=== PATIENT | female | born 1980 | race Caucasian/White ===

== ENCOUNTER 2018-02-16 21:18 | Emergency (ER) | payer OTHER ==
[~2018-02-16] VITALS: Ht 157.5 cm; Wt 55.0 kg
[2018-02-16] MEDS ORDERED: IOHEXOL 350 MG/ML 10 ML VIAL (for RAD DIAG) IVCONTRAST ONE (21:19)
[2018-02-16 21:35] VITALS: BP 117/64; PULSE 61; RESP 16; O2SAT 100
--- NOTE | 2018-02-16 21:40 | PD ---
HPI Time Seen by Provider: 21:35 History of Present Illness HPI The patient is [-] year old [-]male who presents to the [facility] emergency department with a history of [-] that began [-]. The patient denies any history of fever, cough, congestion, neck pain, chest pain, shortness of breath, abdominal pain, vomiting, diarrhea, urinary symptoms , or neurologic symptoms. LMP [-] Tetanus is reportedly up to date. Allergies-Medications (Allergen,Severity, Reaction): Coded Allergies: shellfish derived (Verified Allergy, Unknown, 02/16/18) Reported Meds & Prescriptions Reported Meds & Active Scripts Active No Active Prescriptions or Reported Medications Data Data Last Documented VS Vital Signs Date Time Temp Pulse Resp B/P (MAP) Pulse Ox O2 Delivery O2 Flow Rate FiO2 02/16/18 22:44 78 16 117/66 (83) 77 16 123/67 (85) 65 119/69 (86) 02/16/18 22:33 98.3 02/16/18 21:35 100 Orders Orders Electrocardiogram (02/16/18 21:35) Complete Blood Count With Diff (02/16/18 21:35) Comprehensive Metabolic Panel (02/16/18 21:35) C-Reactive Protein (Crp) (02/16/18 21:35) Lipase (02/16/18 21:35) Urinalysis - C+S If Indicated (02/16/18 21:35) Magnesium (Mg) (02/16/18 21:35) Chest, Single Ap (02/16/18 21:35) Ct Abd/Pel W Iv Contrast(Rout) (02/16/18 21:35) Iv Access Insert/Monitor (02/16/18 21:35) Ecg Monitoring (02/16/18 21:35) Oximetry (02/16/18 21:35) Ed Urine Pregnancytest Poc (02/16/18 21:35) Sodium Chlor 0.9% 1000 Ml Inj (Ns 1000 M (02/16/18 22:15) Morphine Inj (Morphine Inj) (02/16/18 22:15) Ondansetron Inj (Zofran Inj) (02/16/18 22:15) Sodium Chloride 0.9% Flush (Ns Flush) (02/16/18 22:15) Orthostatic Vital Signs (02/16/18 22:12) Creatine Kinase (Cpk) (02/16/18 21:35) Troponin I (02/16/18 21:35) Oxycodone-Acetamin 5-325 Mg (Percocet (02/16/18 23:00) Labs Laboratory Tests Test 02/16/18 22:30 Urine Color YELLOW Urine Turbidity CLEAR Urine pH 6.0 Urine Specific [place] 1.029 Urine Protein 30 mg/dL Urine Glucose (UA) NEG mg/dL Urine Ketones TRACE mg/dL Urine Occult Blood NEG Urine Nitrite NEG Urine Bilirubin NEG Urine Urobilinogen 2.0 MG/DL Urine Leukocyte Esterase TRACE Urine RBC 1 /hpf Urine WBC 2 /hpf Urine Squamous Epithelial Cells 1 /hpf Urine Calcium Oxalate Crystals FEW /hpf Urine Hyaline Casts 1 /lpf Urine Mucus MANY /lpf Microscopic Urinalysis Comment CULT NOT INDICATED MDM Scripts No Active Prescriptions or Reported Meds Carole Jay MD Feb 16, 2018 21:40
--- NOTE | 2018-02-16 21:59 | RADRPT ---
EXAM DATE/TIME: 02/16/2018 21:45 [facility] COMPARISON: No previous studies available for comparison. INDICATIONS : Right upper quadrant pain and two syncopal episodes today. MEDICAL HISTORY : None. SURGICAL HISTORY : None. ENCOUNTER: Initial ACUITY: 1 day PAIN SCORE: 0/10 LOCATION: Bilateral chest FINDINGS: A single view of the chest demonstrates the lungs to be symmetrically aerated without evidence of mas s, infiltrate or effusion. The cardiomediastinal contours are unremarkable. Osseous structures are intact. CONCLUSION: No acute disease. Erik Leach MD FACR on February 16, 2018 at 21:56 Board Certified Radiologist. This report was verified electronically.
--- NOTE | 2018-02-16 22:12 | PD ---
HPI Chief Complaint: Abdominal pain, syncope Time Seen by Provider: 22:01 Travel History International Travel<30 days: No Contact w/Intl Traveler<30days: No History of Present Illness HPI 37-year-old female presents to the emergency department presents to the emergency department for evaluation of right upper quadrant abdominal pain as well as syncope. Patient states she started abdominal pain this morning. She states that while eating dinner, the pain worsened. She states that while eating dinner, she had syncopal episode 2. Her family member witnessed the episodes. She had no head injury. The patient denies any chest pain or shortness of breath. She reports history of cholecystectomy. She denies . She currently rates the pain 8/10, aching and throbbing, without radiation. Patient reports no chronic medical problems and takes no prescribed medications. Eating makes pain worse. No alleviating factors. Moderate severity. PFSH Social History Alcohol Use: Yes Tobacco Use: No Substance Use: No Allergies-Medications (Allergen,Severity, Reaction): Coded Allergies: shellfish derived (Verified Allergy, Unknown, 02/16/18) Review of Systems Except as stated in HPI: all other systems reviewed are Neg Physical Exam Narrative GENERAL: Well-nourished, well-developed female patient, ambulatory. Afebrile SKIN: Focused skin assessment warm/dry. HEAD: Normocephalic. Atraumatic ENT: Mucosa pink and moist. No erythema or exudates. No uvular edema. No uvular , palatal, or tonsillar deviation. Airway patent. Nasal turbinates appear normal without nasal blood, purulent drainage or septal hematoma. Bilateral tympanic membranes clear without erythema or perforation. EYES: No scleral icterus. No injection or drainage. NECK: Supple, trachea midline. No JVD or lymphadenopathy. CARDIOVASCULAR: Regular rate and rhythm without murmurs, gallops, or rubs. RESPIRATORY: Breath sounds equal bilaterally. No accessory muscle use. Lung sounds are clear to auscultation GASTROINTESTINAL: Abdomen soft and nondistended. Patient has tenderness over the right upper quadrant MUSCULOSKELETAL: No cyanosis, or edema. BACK: Nontender without obvious deformity. No CVA tenderness. Data Data Last Documented VS Vital Signs Date Time Temp Pulse Resp B/P (MAP) Pulse Ox O2 Delivery O2 Flow Rate FiO2 02/16/18 21:35 61 16 117/64 (81) 100 Orders Orders Electrocardiogram (02/16/18 21:35) Complete Blood Count With Diff (02/16/18 21:35) Comprehensive Metabolic Panel (02/16/18 21:35) C-Reactive Protein (Crp) (02/16/18 21:35) Lipase (02/16/18 21:35) Urinalysis - C+S If Indicated (02/16/18 21:35) Magnesium (Mg) (02/16/18 21:35) Chest, Single Ap (02/16/18 21:35) Ct Abd/Pel W Iv Contrast(Rout) (02/16/18 21:35) Iv Access Insert/Monitor (02/16/18 21:35) Ecg Monitoring (02/16/18 21:35) Oximetry (02/16/18 21:35) Ed Urine Pregnancytest Poc (02/16/18 21:35) Creatine Kinase (Cpk) (02/16/18 22:06) Troponin I (02/16/18 22:06) Sodium Chlor 0.9% 1000 Ml Inj (Ns 1000 M (02/16/18 22:15) Morphine Inj (Morphine Inj) (02/16/18 22:15) Ondansetron Inj (Zofran Inj) (02/16/18 22:15) Sodium Chloride 0.9% Flush (Ns Flush) (02/16/18 22:15) Orthostatic Vital Signs (02/16/18 22:12) MDM Medical Decision Making Medical Screen Exam Complete: Yes Emergency Medical Condition: Yes Medical Record Reviewed: Yes Differential Diagnosis Acute pancreatitis versus bile duct obstruction versus UTI versus electrolyte abnormality versus dehydration Narrative Course 37-year-old female presents to the emergency department for evaluation of abdominal pain and syncope. EKG showed sinus rhythm, heart rate 60, no acute ST changes. CBC, CMP, CRP, lipase, magnesium, CK, troponin, UA, UPT are ordered and pending. Chest x-ray and CT abdomen/pelvis with IV contrast are ordered and pending. Orthostatic vital signs are ordered and pending. Patient is given normal saline 1 L IV bolus, morphine 4 mg IV, Zofran 4 mg IV. Chest x-ray shows no acute disease. Dr. Jay will resume care and disposition of patient Sneha Beltran Feb 16, 2018 22:12
[2018-02-16] MEDS ORDERED: MORPHINE SULFATE 4 MG/ML INJ IV PUSH ONE (22:15)
[2018-02-16] MEDS ORDERED: ONDANSETRON HCL 4 MG/2 ML VIAL IV PUSH ONE (22:15)
[2018-02-16] MEDS ORDERED: SODIUM CHLOR 0.9% 1000 ML INJ 1,000 ML IV ONE (22:15)
[2018-02-16] MEDS ORDERED: SODIUM CHLORIDE 0.9% FLUSH 10 ML FLUSH IVF PRN (22:15)
[2018-02-16 22:33] VITALS: TEMP 98.3
[2018-02-16 22:44] VITALS: BP_SYST 117; BP_SYST 119; BP_SYST 123; BP_DIAS 66; BP_DIAS 67; BP_DIAS 69; RESP 16
[2018-02-16] MEDS ORDERED: oxyCODONE/ACETAMINOPHEN 5 MG/325 MG TAB PO ONE (23:00)
[2018-02-16 23:05] LABS: BILIRUBIN, URINE NEG (NEG); BLOOD, URINE NEG (NEG); CALCIUM OXALATE CRYSTALS,URINE FEW /hpf; GLUCOSE,URINE NEG (NEG); HYALINE CAST, URINE 1 /lpf (RARE); KETONE, URINE TRACE mg/dL (NEG); MUCUS URINE MANY /lpf (OCC); NITRITE,URINE NEG (NEG); SQUAMOUS EPITHELIAL CELL URINE 1 /hpf (0-5); URINE COLOR YELLOW (YELLW/STRAW); URINE LEUKOCYTE ESTERASE TRACE (NEG)
--- NOTE | 2018-02-16 23:13 | PD ---
Data Data Last Documented VS Vital Signs Date Time Temp Pulse Resp B/P (MAP) Pulse Ox O2 Delivery O2 Flow Rate FiO2 02/16/18 22:44 78 16 117/66 (83) 77 16 123/67 (85) 65 119/69 (86) 02/16/18 22:33 98.3 02/16/18 21:35 100 Orders Orders Electrocardiogram (02/16/18 21:35) Complete Blood Count With Diff (02/16/18 21:35) Comprehensive Metabolic Panel (02/16/18 21:35) C-Reactive Protein (Crp) (02/16/18 21:35) Lipase (02/16/18 21:35) Urinalysis - C+S If Indicated (02/16/18 21:35) Magnesium (Mg) (02/16/18 21:35) Chest, Single Ap (02/16/18 21:35) Ct Abd/Pel W Iv Contrast(Rout) (02/16/18 21:35) Iv Access Insert/Monitor (02/16/18 21:35) Ecg Monitoring (02/16/18 21:35) Oximetry (02/16/18 21:35) Ed Urine Pregnancytest Poc (02/16/18 21:35) Sodium Chlor 0.9% 1000 Ml Inj (Ns 1000 M (02/16/18 22:15) Morphine Inj (Morphine Inj) (02/16/18 22:15) Ondansetron Inj (Zofran Inj) (02/16/18 22:15) Sodium Chloride 0.9% Flush (Ns Flush) (02/16/18 22:15) Orthostatic Vital Signs (02/16/18 22:12) Creatine Kinase (Cpk) (02/16/18 21:35) Troponin I (02/16/18 21:35) Oxycodone-Acetamin 5-325 Mg (Percocet (02/16/18 23:00) Iohexol 350 Inj (Omnipaque 350 Inj) (02/16/18 21:19) Labs Laboratory Tests Test 02/16/18 22:30 White Blood Count 8.3 TH/MM3 Red Blood Count 4.25 MIL/MM3 Hemoglobin 13.5 GM/DL Hematocrit 39.3 % Mean Corpuscular Volume 92.6 FL Mean Corpuscular Hemoglobin 31.7 PG Mean Corpuscular Hemoglobin Concent 34.2 % Red Cell Distribution Width 13.4 % Platelet Count 218 TH/MM3 Mean Platelet Volume 8.5 FL Neutrophils (%) (Auto) 71.9 % Lymphocytes (%) (Auto) 21.4 % Monocytes (%) (Auto) 5.6 % Eosinophils (%) (Auto) 0.9 % Basophils (%) (Auto) 0.2 % Neutrophils # (Auto) 6.0 TH/MM3 Lymphocytes # (Auto) 1.8 TH/MM3 Monocytes # (Auto) 0.5 TH/MM3 Eosinophils # (Auto) 0.1 TH/MM3 Basophils # (Auto) 0.0 TH/MM3 CBC Comment DIFF FINAL Differential Comment Urine Color YELLOW Urine Turbidity CLEAR Urine pH 6.0 Urine Specific [place] 1.029 Urine Protein 30 mg/dL Urine Glucose (UA) NEG mg/dL Urine Ketones TRACE mg/dL Urine Occult Blood NEG Urine Nitrite NEG Urine Bilirubin NEG Urine Urobilinogen 2.0 MG/DL Urine Leukocyte Esterase TRACE Urine RBC 1 /hpf Urine WBC 2 /hpf Urine Squamous Epithelial Cells 1 /hpf Urine Calcium Oxalate Crystals FEW /hpf Urine Hyaline Casts 1 /lpf Urine Mucus MANY /lpf Microscopic Urinalysis Comment CULT NOT INDICATED Blood Urea Nitrogen 10 MG/DL Creatinine 0.66 MG/DL Random Glucose 92 MG/DL Total Protein 7.2 GM/DL Albumin 3.8 GM/DL Calcium Level 8.4 MG/DL Magnesium Level 1.8 MG/DL Alkaline Phosphatase 51 U/L Aspartate Amino Transf (AST/SGOT) 14 U/L Alanine Aminotransferase (ALT/SGPT) 16 U/L Total Bilirubin 0.3 MG/DL Sodium Level 140 MEQ/L Potassium Level 3.7 MEQ/L Chloride Level 107 MEQ/L Carbon Dioxide Level 24.1 MEQ/L Anion Gap 9 MEQ/L Estimat Glomerular Filtration Rate 100 ML/MIN Total Creatine Kinase 90 U/L Troponin I LESS THAN 0.02 NG/ML C-Reactive Protein LESS THAN 0.29 MG/DL Lipase 123 U/L [facility] Medical Record Reviewed: Yes Supervised Visit with SHERLEY: No Narrative Course During the course of the patient's emergency department visit, the patient's history, examination, and differential diagnosis were reviewed with the patient. The patient was placed on a quality assurance monitor final with oximetry and frequent blood pressure monitoring. The patient had IV access obtained and blood work sent for analysis. The patient's case was checked out to me by Sneha, the nurse practitioner. Please see her complete history and physical. The patient' s case was checked out to me at the conclusion of her shift. The patient reported a history of abdominal pain since this morning. The patient reported that the abdominal pain became worse after eating dinner. The patient had 2 syncopal events without injury related to the pain after dinner. The patient had orthostatic vital signs done that were negative here in the emergency department. Laboratory studies and imaging studies were ordered by Sneha. The patient's bedside test was negative. The patient was initially provided Percocet, normal saline 1 L IV fluid bolus, Zofran 4 mg IV 1 for nausea. These were administered by Sneha. The patient's laboratory studies were reviewed and remarkable for a white count of 8.3, hemoglobin 13.5, platelets 218 with neutrophils 71.9. CMP is remarkable for calcium of 8.4, magnesium 1.8, AST 14, cardiac enzymes within normal limits, C-reactive protein less than 0.29, lipase 123. Urinalysis shows 30 protein trace ketones trace leukocyte esterase few calcium oxalate crystals many mucus, culture not indicated. Radiology studies were reviewed and remarkable for a chest x-ray that shows no evidence of acute cardiopulmonary disease. CT scan of the abdomen and pelvis shows a small amount of pelvic free fluid, probable 18 mm hemorrhagic cyst of the left ovary. Otherwise, the patient is noted be status post cholecystectomy. The patient will be given an outpatient lab slip to evaluate for resolution of her ovarian cyst. The patient is given a prescription for an anti-inflammatory pain medication to be taken as needed for discomfort. She is instructed to follow-up with a bandsaw operator. The patient is resting comfortably and feels better, is alert and in no distress. The patient's results and examination findings were discussed with the patient. The repeat examination is unremarkable and benign. The history, exam, diagnostic testing, and current condition do not suggest any significant pathology to warrant further testing, continued ED treatment, admission, or surgical evaluation at this point. The vital signs have been stable. The patient does not have uncontrollable pain, intractable vomiting, or other significant symptoms. The patient's condition is stable and appropriate for discharge. The patient will pursue further outpatient evaluation with a primary care physician or other designated or consulting physician as indicated in the discharge instructions. The patient expressed understanding and was agreeable with this plan. Diagnosis Primary Impression: Ovarian cyst Qualified Codes: N83.202 - Unspecified ovarian cyst, left side Additional Impression: Abdominal pain Qualified Codes: R10.9 - Unspecified abdominal pain Referrals: Power [employer] Operator 1 week Patient Instructions: Abdominal Pain (ED), General Instructions, Ovarian Cyst ( ED) Med/Other Pt SpecificInfo: Prescription(s) given Scripts Ondansetron Odt (Zofran Odt) 4 Mg Tab 4 MG SL Q6HR Y for Nausea/Vomiting, #7 TAB 0 Refills Prov: Carole Jay MD 02/17/[address] (EC-Naprosyn) 500 Mg Tabdr 500 MG PO BID Y for PAIN SCALE 5 TO 10, #10 TAB 0 Refills Prov: Carole Jay MD 02/17/18 Disposition: 01 DISCHARGE HOME Condition: Stable Carole Jay MD Feb 16, 2018 23:13
[2018-02-16 23:17] LABS: ALBUMIN 3.8 GM/DL (3.4-5.0); ALT (GPT) 16 U/L (10-53); AST (GOT) 14 U/L (15-37); BICARBONATE 24.1 MEQ/L (21.0-32.0); BLOOD UREA NITROGEN 10 MG/DL (7-18); C-REACTIVE PROTEIN LESS THAN 0.29 MG/DL (0.00-0.30); CALCIUM 8.4 MG/DL (8.5-10.1); CHLORIDE 107 MEQ/L (98-107); CREATININE 0.66 MG/DL (0.50-1.00); GLOMERULAR FILTRATION RATE 100 ML/MIN (>89); GLUCOSE,RANDOM 92 MG/DL (74-106); MAGNESIUM 1.8 MG/DL (1.5-2.5); SODIUM (NA) 140 MEQ/L (136-145)
[2018-02-16 23:20] LABS: ALKALINE PHOSPHATASE 51 U/L (45-117); TOTAL BILIRUBIN ADULT 0.3 MG/DL (0.2-1.0); TOTAL PROTEIN 7.2 GM/DL (6.4-8.2); TROPONIN I LESS THAN 0.02 NG/ML (0.02-0.05)
--- NOTE | 2018-02-16 23:50 | RADRPT ---
EXAM DATE/TIME: 02/16/2018 23:31 [facility] COMPARISON: No previous studies available for comparison. INDICATIONS : Abdomen pain. IV CONTRAST: 82 cc Omnipaque 350 (iohexol) IV ORAL CONTRAST: No oral contrast ingested. RADIATION DOSE: 6.57 CTDIvol (mGy) MEDICAL HISTORY : None SURGICAL HISTORY : Cholecystectomy. ENCOUNTER: Initial ACUITY: 1 day PAIN SCALE: 6/10 LOCATION: Right abdomen TECHNIQUE: Volumetric scanning of the abdomen and pelvis was performed. Using automated exposure control and ad justment of the mA and/or kV according to patient size, radiation dose was kept as low as reasonably achievable to obtain optimal diagnostic quality images. DICOM format image data is available electro nically for review and comparison. FINDINGS: LOWER LUNGS: The visualized lower lungs are clear. LIVER: Homogeneous density without lesion. There is no dilation of the biliary tree. Cholecystectomy clips. SPLEEN: Normal size without lesion. PANCREAS: Within normal limits. KIDNEYS: Normal in size and shape. There is no mass, stone or hydronephrosis. ADRENAL GLANDS: Within normal limits. VASCULAR: There is no aortic aneurysm. BOWEL/MESENTERY: The stomach, small bowel, and colon demonstrate no acute abnormality. There is no free intraperitone al air or fluid. ABDOMINAL WALL: Within normal limits. RETROPERITONEUM: There is no lymphadenopathy. BLADDER: No wall thickening or mass. REPRODUCTIVE: Small pelvic free fluid. Probable 18 mm hemorrhagic cyst left ovary. INGUINAL: There is no lymphadenopathy or hernia. MUSCULOSKELETAL: Within normal limits for patient age. CONCLUSION: 1. Small pelvic free fluid with probable small hemorrhagic cyst left ovary. 2. Status post cholecystectomy. Mina Almazan MD on February 16, 2018 at 23:45 Board Certified Radiologist. This report was verified electronically.
[2018-02-16 23:57] LABS: BASOPHIL % 0.2 % (0.0-2.0); EOSINOPHIL # 0.1 TH/MM3 (0-0.4); EOSINOPHIL % 0.9 % (0.0-4.0); HEMATOCRIT 39.3 % (35.0-46.0); HEMOGLOBIN 13.5 GM/DL (11.6-15.3); LYMPH % 21.4 % (9.0-44.0); LYMPHOCYTE # 1.8 TH/MM3 (1.0-4.8); MEAN CELL VOLUME 92.6 FL (80.0-100.0); MEAN CORPUSCULAR HEMOGLOBIN 31.7 PG (27.0-34.0); MEAN CORPUSCULAR HGB CONC 34.2 % (32.0-36.0); MEAN PLATELET VOLUME 8.5 FL (7.0-11.0); MONO % 5.6 % (0.0-8.0); MONOCYTE # 0.5 TH/MM3 (0-0.9); NEUT % 71.9 % (16.0-70.0); PLATELET COUNT 218 TH/MM3 (150-450); RED BLOOD COUNT 4.25 MIL/MM3 (4.00-5.30); RED CELL DISTRIBUTION WIDTH 13.4 % (11.6-17.2); WHITE BLOOD COUNT 8.3 TH/MM3 (4.0-11.0)
[2018-02-17] VITALS: BP 118/58; PULSE 76; RESP 16; O2SAT 97
[2018-02-17] MEDS ORDERED: NAPR-810 PO (00:27)
[2018-02-17] MEDS ORDERED: ZOFR4TAB3 SL (00:27)
--- NOTE | 2018-02-18 00:19 | EKG ---
Date Performed: 02/16/2018 Time Performed: 22:02:22 PTAGE: 37 years EKG: Sinus rhythm WITH SINUS ARRHYTHMIA NORMAL ECG NO PREVIOUS TRACING DOCTOR: Maximilian Ross Interpretating Date/Time 02/18/2018 00:09:41
== END 2018-02-17 00:59 | disposition home or self-care (01) ==
LOC: NEPC 21:18
DX: N83.202 Unspecified ovarian cyst, left side (principal); R10.11 Right upper quadrant pain; R55 Syncope and collapse
CPT/HCPCS: 71045; 74177; 80053; 81001; 82550; 83690; 83735; 84484; 84703; 85025; 86140; 93005; 96361; 96374; 99285; J2405; J7030; Q9967